=== PATIENT | male | born 1975 | race Caucasian/White ===

== ENCOUNTER 2020-07-13 05:15 | Day surgery (SDC) | payer MEDICAID ==
[~2020-07-13] VITALS: Ht 175.3 cm; Wt 127.0 kg
[~2020-07-13 05:15] MED LIST: CIMETIDINE200 MG PO; ERGOCALCIF50000 UNIT PO; LIPITOR40 MG PO; LISINOPRIL-HCT1 EAC8 PO; ZYRTEC10 MG PO
[2020-07-13 05:30] LABS: BASOPHILS 1.3 % (0-2); EOSINOPHILS 4.6 % (0-7); HEMATOCRIT 45.1 % (42.0-54.0); HEMOGLOBIN 15.4 g/dL (13.5-17.5); IMMATURE GRANULOCYTES 0.2 % (0-5); LYMPHOCYTE ABS# 4.55 10x3/uL (1.32-3.57); LYMPHOCYTES 36.1 % (15-50); MCH 31.4 pg (26.0-34.0); MCHC 34.1 g/dL (31.0-37.0); MCV 91.9 fL (80.0-100.0); MEAN PLATELET VOLUME 9.8 fL (7.4-10.4); NEUTROPHIL ABS# 6.27 10x3/uL (1.78-5.38); NEUTROPHILS 49.8 % (40-80); PLATELET COUNT 266 10x3/uL (130-400); RBC 4.91 10x6/uL (4.20-6.10); WBC 12.6 10x3/uL (4.8-10.8)
[2020-07-13 05:59] LABS: ANION GAP 13.1 mmol/L (8-16); CALCIUM 8.9 mg/dL (8.5-10.1); CARBON DIOXIDE 28.6 mmol/L (21.0-32.0); CREATININE - SERUM 1.4 mg/dL (0.6-1.3); POTASSIUM - SERUM 3.7 mmol/L (3.5-5.1)
[2020-07-13] MEDS ORDERED: GLIMEPIRIDE2 MG PO (06:29)
[2020-07-13] MEDS ORDERED: BUPRENORPHIN-N1 EACH SL (06:29)
[2020-07-13] MEDS ORDERED: ALEVE220 MG PO (06:30)
[2020-07-13] MEDS ORDERED: FUROSEMIDE40 MG PO (06:30)
[2020-07-13 06:43] VITALS: BP 137/71; Ht 175.3 cm; Wt 127.0 kg
--- NOTE | 2020-07-13 09:50 | NUR ---
DISCHARGE INSTRUCTIONS REVIEWED WITH PT AND FAMILY, COPY PROVIDED. BOTH VOICED UNDERSTANDING OF INSTRUCTIONS GIVEN.
--- NOTE | 2020-07-13 10:33 | NUR ---
DISCHARGED VIA W/C, ACCOMPANIED BY THIS NURSE, TO POV WITH FAMILY DRIVING. ALL BELONGINGS WITH PT.
--- NOTE | 2020-07-17 17:54 | OP ---
PATIENT NAME: NITO HOLBROOK 2ND MEDICAL RECORD: [id number] :71 LOCATION:[facility] ADMISSION DATE: SURGEON: YVON MCGINNIS MD DATE OF OPERATION: 07/13/2020 PREOPERATIVE DIAGNOSIS: Left carpal tunnel syndrome. POSTOPERATIVE DIAGNOSIS: Left carpal tunnel syndrome. PROCEDURE PERFORMED: Left carpal tunnel release. INDICATIONS FOR THE PROCEDURE: Mr. Holbrook is a 44-year-old male with history of left hand pain and numbness. He has had carpal tunnel syndrome for some time now and has attempted conservative treatments, but symptoms are getting worse. He has elected to proceed with surgery for left carpal tunnel release. Risks, benefits and alternatives of surgery were discussed with the patient. Consent was obtained. DESCRIPTION OF THE PROCEDURE: The patient was met in the holding area where his identity and confirmation of procedure was performed. Left upper extremity was marked. He was taken to the operating room where he was placed supine on the operating table and anesthesia was administered. A tourniquet was applied to the left arm. Left arm was prepped and draped in a sterile fashion. The patient received preoperative antibiotics and timeout was performed prior to initiating the case. On initiation of the case, the arm was exsanguinated and the tourniquet was raised. Total tourniquet time was 13 minutes. Incision was made over the palm in line with the fourth ray. We incised through the skin and subcutaneous tissues dissected down to the transverse carpal ligament. The ligament was then incised and a freer was then inserted. We continued our release distally until it was completely released. We then turned and released proximally with the scissors under direct visualization to complete our carpal tunnel release. Carpal tunnel was explored and the median nerve was noted to be flattened. There was a large amount of synovitis within the carpal tunnel, but no other abnormalities. Tourniquet was let down and hemostasis was obtained. The wound was irrigated thoroughly with saline. A 0.25% Marcaine was injected into the soft tissues around the incision. The incision was then closed with 4-0 nylon suture. A sterile dressing was placed. The patient was turned back over to anesthesia where he was awakened and taken to recovery room in stable condition. POSTOPERATIVE PLAN: The patient is going to return home with his family today. He needs to limit use of the left hand for the next few weeks. We will see him back in clinic in 2 weeks. COMPLICATIONS: None. ESTIMATED BLOOD LOSS: 5 mL. ANESTHESIA: General. TRANSINT:[id number] Voice Confirmation ID: [id number] DOCUMENT ID: [id number] OPERATIVE REPORT [id number] NITO HOLBROOK [facility] YVON MCGINNIS MD at 1754 CC: [id number] DICTATION DATE: 07/13/[address]48 [address] WORKER: 07/13/20 0903 [facility] [place] 07/13/20 [place] [id number] [place] [id number]
== END 2020-07-13 10:33 | disposition home or self-care (01) ==
LOC: D.OPS 05:15
PROVIDERS: Anesthesiology; ATTEND Orthopaedic Surgery
DX: G56.02 Carpal tunnel syndrome, left upper limb (principal); M25.561 Pain in right knee; M25.562 Pain in left knee; M23.92 Unspecified internal derangement of left knee